=== PATIENT | female | born 1975 ===

== ENCOUNTER 2020-12-13 07:09 | Emergency (ER) | payer OTHER ==
[~2020-12-13] VITALS: Ht 157.5 cm; Wt 69.4 kg
[2020-12-13] MEDS ORDERED: KETO10TA2 PO (09:44)
== END 2020-12-13 10:39 | disposition home or self-care (01) ==
LOC: ER 07:09
DX: S93.692A Other sprain of left foot, initial encounter (principal); X50.0XXA Overexertion from strenuous movement or load, initial encounter; Y93.89 Activity, other specified; Y92.69 Other specified industrial and construction area as the place of occurrence of the external cause; Y99.8 Other external cause status

== ENCOUNTER 2021-02-01 07:09 | Emergency (ER) | payer OTHER ==
[~2021-02-01] VITALS: Ht 157.5 cm; Wt 69.4 kg
[~2021-02-01 07:09] MED LIST: KETO10TA2 PO
== END 2021-02-01 13:39 | disposition home or self-care (01) ==
LOC: ER 07:09
DX: K52.9 Noninfective gastroenteritis and colitis, unspecified (principal)